=== PATIENT | female | born 1930 | race Caucasian/White ===

== ENCOUNTER 2016-11-21 15:07 | Emergency (ER) | payer BC ==
[~2016-11-21] VITALS: Ht 170.2 cm; Wt 70.0 kg
[~2016-11-21 15:07] MED LIST: AZIL40TA3 PO; BIOT10004 PO; CITRTAB7 PO; METO50TA PO; MIRA33502 PO; PRESCAP6 PO; STOO100T; SYNT100T PO; VALT1TAB26 PO; ZOFR4TAB3 SL; [UNRECOGNIZED DRUG - OTHER] PO
[2016-11-21 15:09] VITALS: BP 179/85; PULSE 90; RESP 14; TEMP 98.1; O2SAT 96
[2016-11-21 16:21] VITALS: BP 195/86; PULSE 78; RESP 22; TEMP 97.9; O2SAT 99
--- NOTE | 2016-11-21 16:41 | PD ---
HPI Chief Complaint: Back/ Neck Pain or Injury Time Seen by Provider: 16:06 Travel History International Travel<30 days: No Contact w/Intl Traveler<30days: No Traveled to known affect area: No History of Present Illness HPI This is an 86-year-old female with a previous history of cervical spine fusion, presents today with complaints of severe right sided neck pain with radiation down to her right shoulder. The patient states that it started Monday with roughly an hour after she was working out on the treadmill. The patient does state that she was vigorously swinging her arms while on the treadmill. She is not sure whether this exacerbated the pain or not. She denies any weakness of her upper extremities but reports pain down from her right posterior upper cervical spine down to her shoulder. She points to her trapezius distribution when stating she has pain. There are no other complaints time my examination. PFSH Past Medical History Cardiovascular Problems: Yes (HTN) Diabetes: No Diminished Hearing: No Hypertension: Yes Musculoskeletal: Yes (PLATE IN NECK) Thyroid Disease: Yes Influenza Vaccination: No Past Surgical History Appendectomy: Yes Cholecystectomy: Yes Hysterectomy: Yes Joint Replacement: Yes (left hip) Tonsillectomy: Yes Social History Alcohol Use: No Tobacco Use: No Substance Use: No Allergies-Medications (Allergen,Severity, Reaction): Coded Allergies: Codeine (Verified Allergy, Severe, CAN NOT REMEMBER, 11/21/16) Hydromorphone (Verified Allergy, Severe, DIZZY, 11/21/16) Lipitor (Verified Allergy, Severe, ABD PAIN, 11/21/16) Penicillin (Verified Allergy, Severe, RASH, 11/21/16) Cephalexin (Verified Allergy, Mild, nausea, dizzy, 11/21/16) Doxycycline (Verified Allergy, Mild, itching, 11/21/16) Macrobid (Verified Allergy, Mild, rash, 11/21/16) See Uncoded Allergy/Adv Reaction (Verified Allergy, Mild, hives, 11/21/16) medication enablex Vesicare (Verified Adverse Reaction, Severe, could not pass urine, 11/21/16 ) Uncoded Allergies: enablex (Allergy, Mild, hives, 12/15/13) Reported Meds & Prescriptions Reported Meds & Active Scripts Active Skelaxin (Metaxalone) 800 Mg Tab 800 Mg PO TID Reported Synthroid (Levothyroxine Sodium) 100 Mcg Tab 100 Mcg PO DAILY Aspirin 325 Mg Tab 160 Mg PO DAILY Metoprolol Tartrate 25 Mg Tab 25 Mg PO DAILY Centrum (Multiple Vitamins W/ Minerals) 1 Chew 1 Tab CHEW DAILY Zofran (Ondansetron HCl) 4 Mg Tab 4 Mg PO Q6HR PRN [Cran Actin] 2 Tab PO DAILY Review of Systems General / Constitutional: No: Chills HENT: Positive: Neck Pain, No: Headaches Cardiovascular: No: Chest Pain or Discomfort (pain down to her right shoulder) , Palpitations Respiratory: No: Shortness of Breath Gastrointestinal: No: Nausea, Vomiting, Abdominal Pain Musculoskeletal: Positive: Pain (in from her right upper neck down to her right shoulder. This follows the trapezius muscle distribution), No: Weakness Neurologic: No: Weakness, Syncope, Headache, Seizures Physical Exam Narrative GENERAL: Well-nourished, well-developed patient. SKIN: Warm and dry. HEAD: Normocephalic/atraumatic. NECK: The patient has a soft collar in place. Upon removal of the soft collar she has tenderness along her trapezius muscle most tender at the right lateral posterior's spine at the C3 level. CARDIOVASCULAR: Regular rate and rhythm without murmurs, gallops, or rubs. RESPIRATORY: Breath sounds equal bilaterally. No accessory muscle use. GASTROINTESTINAL: Abdomen soft, non-tender, nondistended. MUSCULOSKELETAL: Tenderness in the right trapezius distribution in the neck. No deformity noted. No rash noted. NEUROLOGICAL: Awake and alert. Cranial nerves II through XII intact. Motor grossly within normal limits. Five out of 5 muscle strength in all muscle groups. Normal speech. Data Data Last Documented VS Vital Signs Date Time Temp Pulse Resp B/P Pulse Ox O2 Delivery O2 Flow Rate FiO2 11/21/16 18:17 68 20 176/80 98 Room Air 11/21/16 16:21 97.9 Orders Ketorolac Inj (Toradol Inj) (11/21/16 16:45) Ct Cerv Spine W/O Contrast (11/21/16 17:25) MDM Medical Decision Making Medical Screen Exam Complete: Yes Emergency Medical Condition: Yes Differential Diagnosis Cervical strain versus muscular strain versus cervical spine injury Narrative Course 86-year-old female who presents with neck pain since Monday. The patient states that started shortly after walking on her treadmill. The patient does say that she was vigorously swinging her arms when she was on her treadmill. On examination her pain appears to be more lateral and in her trapezius distribution. CT cervical spine shows no acute injury. I discussed the findings with the patient informed her that my gut feeling is that she has musculoskeletal pain. I offered Flexeril however she wishes not to use Flexeril. I did state that there is a non-sedating muscle relaxer called Skelaxin that we could use instead. She was amenable to this. She takes a half an aspirin daily. I informed her she should increase her aspirin to 2 160 mg doses daily for 5-7 days. She is instructed to take this with food. She's also told to use moist heat for comfort. I have encouraged her to follow up with a primary care physician. I will give her Dr. Francisca Hickey's number. Physician Communication Physician Communication Please send a copy to patient's primary care physician in in [place]. Nilda Garcias MD Diagnosis Primary Impression: Cervical muscle strain Referrals: Digna Hickey MD Additional Instructions: Moist heat 3 times a day for 3-4 days. Aspirin 162 mg twice daily 3-4 days. Skelaxin 5 days. Avoid heavy lifting. Med/Other Pt SpecificInfo: Prescription(s) given Scripts Metaxalone (Skelaxin)800 Mg The747 Mg PO TID #15 TAB Ref 0 Prov:Michael Bay MD 11/21/16 Disposition: 01 DISCHARGE HOME Condition: Stable Michael Bay MD Nov 21, 2016 16:41
[2016-11-21] MEDS ORDERED: KETOROLAC TROMETHAMINE 60 MG/2 ML (IM) VIAL IM ONE (16:45)
[2016-11-21] MEDS ORDERED: ZOFR4TAB PO (17:25)
[2016-11-21] MEDS ORDERED: CENTCHW4 CHEW (17:25)
[2016-11-21] MEDS ORDERED: ASPI325T PO (17:25)
[2016-11-21] MEDS ORDERED: LEVO.1 PO (17:25)
[2016-11-21] MEDS ORDERED: METO25TA3 PO (17:25)
[2016-11-21 17:28] VITALS: BP 182/86; PULSE 70; RESP 20; O2SAT 99
[2016-11-21 18:17] VITALS: BP 176/80; PULSE 68; RESP 20; O2SAT 98
--- NOTE | 2016-11-21 18:39 | RADRPT ---
EXAM DATE/TIME: 11/21/2016 18:01 [facility] COMPARISON: No previous studies available for comparison. INDICATIONS : Neck pain with radiculopathy. RADIATION DOSE: 33.19 CTDIvol (mGy) MEDICAL HISTORY : Cardiovascular disease. Hypertension. SURGICAL HISTORY : Cholecystectomy. Hysterectomy.Cervical fusion. ENCOUNTER: Initial ACUITY: 1 day PAIN SCALE: 10/10 LOCATION: neck TECHNIQUE: Volumetric scanning of the cervical spine was performed. Multiplanar reconstructions in the sagittal, coronal and oblique axial planes were performed. Using automated exposure control and adjustment o f the mA and/or kV according to patient size, radiation dose was kept as low as reasonably achievable to obtain optimal diagnostic quality images. FINDINGS: Craniocervical and cervical vertebral body alignment are well-maintained without evidence of listhesi s. Postsurgical changes following anterior fusion from C4-C7 are noted. Cages are identified in the C4-5 , C5-6 and C6-7 disc spaces. Marginal disc osteophyte complexes remain evident along the right posterolateral margin of C4-5 and C 5-6. There is no significant spinal stenosis. Uncovertebral spurring at C5-6 is causing mild bilateral foraminal encroachment. There is moderate to severe facet arthropathy with the space narrowing, subchondral sclerosis and mar ginal spurring. There is no evidence of acute disc herniation. CONCLUSION: Status post anterior cervical fusion from C4-C7. No evidence of disc herniation, spinal stenosis or significant foraminal encroachment. Moderate to severe facet arthropathy. No evidence of acute process. Roberth Valero MD on November 21, 2016 at 18:29 Board Certified Radiologist. This report was verified electronically.
[2016-11-21] MEDS ORDERED: META800T81 PO (19:01)
== END 2016-11-21 19:40 | disposition home or self-care (01) ==
LOC: NEPC 15:07
DX: S16.1XXA Strain of muscle, fascia and tendon at neck level, initial encounter (principal); X50.9XXA Other and unspecified overexertion or strenuous movements or postures, initial encounter; Y93.A1 Activity, exercise machines primarily for cardiorespiratory conditioning
CPT/HCPCS: 72125; 96372; 99283; J1885